=== PATIENT | female | born 1980 | race Hispanic/Latino ===

== ENCOUNTER 2017-11-14 18:08 | Emergency (ER) | payer MEDICAID ==
[2017-11-14] MEDS ORDERED: DiphenhydrAMINE 50 mg/ml Inj IVP STA (18:30)
[2017-11-14] MEDS ORDERED: Sodium Chloride 0.9% 1,000 ML IV STA (18:32)
[2017-11-14] MEDS ORDERED: DiphenhydrAMINE 50 mg/ml Inj ONE (18:48)
--- NOTE | 2017-11-14 18:48 | ED PDOC ---
HPI: Skin/Bite Injury Time Seen by Provider: 11/14/17 18:30 Chief Complaint (Nursing): Allergic Reaction Chief Complaint (Provider): Allergic Reaction History Per: Patient History/Exam Limitations: no limitations Onset/Duration Of Symptoms: Hrs (1/2 prior to arrival) Current Symptoms Are (Timing): Still Present Additional Complaint(s): 37 year old female with numerous allergies presents to the ED with diffuse hives all over her face, torso and extremities that began 1/2 hour prior to arrival and has since worsened. Patient now has lip swelling. She says that she had allergy testing done and is allergic to everything, making it difficult to be sure what she came into contact with. Denies tongue swelling and difficulty breathing. PMD: Dr. Cornelio Garcia Past Medical History Reviewed: Historical Data, Nursing Documentation, Vital Signs Vital Signs: Last Vital Signs Temp 98.5 F 11/14/17 18:23 Pulse 122 H 11/14/17 18:23 Resp 20 11/14/17 18:23 BP 129/72 11/14/17 18:23 Pulse Ox 99 11/14/17 18:23 - Medical History PMH: No Chronic Diseases - Surgical History Surgical History: No Surg Hx - Family History Family History: States: Unknown Family Hx - Allergies Allergies/Adverse Reactions: Allergies Allergy/AdvReac Type Severity Reaction Status Date / Time No Known Allergies Allergy Verified 09/02/15 15:21 Review of Systems ROS Statement: Except As Marked, All Systems Reviewed And Found Negative ENT: Positive for: Mouth Swelling (lip swelling ). Negative for: Throat Swelling Skin: Positive for: Rash (diffuse hives on face, torso and extremities) Physical Exam - Reviewed Nursing Documentation Reviewed: Yes Vital Signs Reviewed: Yes - Physical Exam Appears: Positive for: Non-toxic, No Acute Distress Head Exam: Positive for: ATRAUMATIC, NORMAL INSPECTION, NORMOCEPHALIC Skin: Positive for: Warm, Rash (urticarial rash all over body) Eye Exam: Positive for: Normal appearance, EOMI, PERRL Neck: Positive for: Normal, Painless ROM, Supple Cardiovascular/Chest: Positive for: Regular Rate, Rhythm. Negative for: Murmur Respiratory: Positive for: Normal Breath Sounds. Negative for: Respiratory Distress Gastrointestinal/Abdominal: Positive for: Normal Exam, Soft. Negative for: Tenderness Extremity: Positive for: Normal ROM (x 4). Negative for: Deformity Neurologic/Psych: Positive for: Alert, Oriented (x 3). Negative for: Motor/Sensory Deficits - ECG O2 Sat by Pulse Oximetry: 99 (RA) Pulse Ox Interpretation: Normal Medical Decision Making Medical Decision Makin:30 MDM: allergic dermatitis/ hives Will give Benadryl, Solumedrol and Pepcid and keep under close observation. Epinephrine will be given if symptoms are not improved quickly with other medica tions. 19:00 --Patient will be signed out to Dr. Hughes. Scribe Attestation: Documented by Prema Luciano acting as a scribe for Berkley Ramirez MD Provider Scribe Attestation: All medical record entries made by the Scribe were at my direction and personally dictated by me. I have reviewed the chart and agree that the record accurately reflects my personal performance of the history, physical exam, medical decision making, and the department course for this patient. I have also personally directed, reviewed, and agree with the discharge instructions and disposition. Disposition - Patient ED Disposition Is Patient to be Admitted: Transfer of Care - Disposition Disposition: Transfer of Care Disposition Time: 19:00 Patient Signed Over To: Luciano Hughes
[2017-11-14 19:21] LABS: BASO % 0.5 % (0.0-2.0); EOS # 0.1 K/uL (0.0-0.7); EOS % 1.4 % (0.0-4.0); HEMOGLOBIN 15.1 g/dL (12.0-16.0); LYMPH # 3.4 K/uL (1.0-4.3); LYMPH % 41.4 % (20.0-40.0); MEAN CELL VOLUME 88.5 fl (81.0-99.0); MEAN CORPUSCULAR HEMOGLOBIN 30.3 pg (27.0-31.0); MEAN CORPUSCULAR HGB CONC 34.2 g/dL (33.0-37.0); MEAN PLATELET VOLUME 8.9 fl (7.2-11.7); MONO # 0.5 K/uL (0.0-0.8); MONO % 6.1 % (0.0-10.0); NEUT # 4.2 K/uL (1.8-7.0); NEUT % 50.6 % (50.0-75.0); RBC 4.99 Mil/uL (3.80-5.20); RED CELL DISTRIBUTION WIDTH 12.1 % (11.5-14.5); WHITE BLOOD COUNT 8.3 K/uL (4.8-10.8)
[2017-11-14 19:30] LABS: BLOOD UREA NITROGEN 18 mg/dl (7-17); CALCIUM 9.7 mg/dL (8.4-10.2); GFR NON-AFRICAN AMERICAN > 60
--- NOTE | 2017-11-14 19:34 | ED PDOC ---
- Laboratory Results Result Diagrams: 11/14/17 19:15 11/14/17 19:15 - ECG O2 Sat by Pulse Oximetry: 99 (RA) Pulse Ox Interpretation: Normal Medical Decision Making Medical Decision Makin:00 --Patient was endorsed to this provider pending reevaluation. 20:00 --Patient reports improvement of rash. She will be discharged home. Return precautions provided. No difficulty breathing or any other symptoms. Very well appearing. Advised to followup with PMD for possible allergy testing Scribe Attestation: Documented by Prema Luciano acting as a scribe for Luciano Hughes MD Provider Scribe Attestation: All medical record entries made by the Scribe were at my direction and personally dictated by me. I have reviewed the chart and agree that the record accurately reflects my personal performance of the history, physical exam, medic al decision making, and the department course for this patient. I have also personally directed, reviewed, and agree with the discharge instructions and disposition. Disposition - Clinical Impression Clinical Impression: Allergic reaction - POA Present On Arrival: None - Disposition Referrals: Cornelio Garcia MD [Medical Doctor] - Disposition: Routine/Home Disposition Time: 20:00 Condition: STABLE Prescriptions: Epinephrine [Epipen] 0.3 mg IJ PRN PRN #3 auto.injct PRN Reason: Anaphylaxis Prednisone [Deltasone] 40 mg PO DAILY 3 Days #6 tablet Instructions: Hives Forms: [employer] ([place])
[2017-11-14 20:22] VITALS: BP 123/67; PULSE 102; RESP 18; TEMP 98.2
[2017-11-15 01:50] VITALS: O2SAT 99
== END 2017-11-14 20:20 | disposition home or self-care (01) ==
LOC: H.ER 18:08
DX: T78.40XA Allergy, unspecified, initial encounter (principal)
CPT/HCPCS: 80048; 85025; 96374; 96375; 99283; J1200; J2930; J7030

== ENCOUNTER 2017-11-16 19:24 | Emergency (ER) | payer MEDICAID ==
[2017-11-16 19:35] VITALS: TEMP 98.3; O2SAT 97
[2017-11-16] MEDS ORDERED: Sodium Chloride 0.9% 1,000 ML IV STA (20:12)
--- NOTE | 2017-11-16 20:16 | ED PDOC ---
HPI: Skin/Bite Injury Time Seen by Provider: 11/16/17 20:01 Chief Complaint (Nursing): Abdominal Pain Chief Complaint (Provider): rash History Per: Patient History/Exam Limitations: no limitations Onset/Duration Of Symptoms: Days (2) Current Symptoms Are (Timing): Still Present Quality Of Symptoms: Itching Additional Complaint(s): 37 y/o female presents for evaluation of diffuse rash x 2 days. Patient states she has been tested for allergies and had positive tests for "multiple things", but thinks this was triggered by a cat. Patient states she was seen here at onset of symptoms and prescribed prednisone, pepcid, and benadryl; which she has been taking without improvement. Patient also reports lower abdominal cramping with multiple loose stools since this morning. Denies fever, nausea/vomiting, chest pain, shortness of breath, palpitations, urinary symptoms, recent travel, sick contacts. Past Medical History Reviewed: Historical Data, Nursing Documentation, Vital Signs Vital Signs: Last Vital Signs Temp 98.3 F 11/16/17 19:31 Pulse 117 H 11/16/17 19:31 Resp 20 11/16/17 19:31 BP 123/85 11/16/17 19:31 Pulse Ox 97 11/16/17 19:31 - Medical History PMH: No Chronic Diseases - Surgical History Surgical History: Tonsillectomy - Family History Family History: States: Unknown Family Hx - Home Medications Home Medications: Ambulatory Orders Medication Instructions Recorded Epinephrine [Epipen] 0.3 mg IJ PRN PRN #3 auto.injct 11/14/17 RX: Prednisone [Deltasone] 40 mg PO DAILY 3 Days #6 tablet 11/14/17 Cetirizine HCl [Zyrtec] 10 mg PO DAILY #5 capsule 11/17/17 Dicyclomine [Bentyl] 20 mg PO TID PRN #15 tab 11/17/17 RX: Prednisone 50 mg PO DAILY #4 tablet 11/17/17 - Allergies Allergies/Adverse Reactions: Allergies Allergy/AdvReac Type Severity Reaction Status Date / Time cat dander Allergy RASH Verified 11/16/17 19:36 dog dander Allergy RASH Verified 11/16/17 19:36 tree and shrub pollen Allergy RASH Verified 11/16/17 19:36 Review of Systems ROS Statement: Except As Marked, All Systems Reviewed And Found Negative Gastrointestinal: Positive for: Abdominal Pain Skin: Positive for: Rash Physical Exam - Reviewed Nursing Documentation Reviewed: Yes Vital Signs Reviewed: Yes - Physical Exam Appears: Positive for: Well, Non-toxic, No Acute Distress Head Exam: Positive for: ATRAUMATIC, NORMAL INSPECTION, NORMOCEPHALIC Skin: Positive for: Rash (diffuse hives) Eye Exam: Positive for: Normal appearance ENT: Positive for: Normal ENT Inspection Cardiovascular/Chest: Positive for: Regular Rate, Rhythm Respiratory: Positive for: Normal Breath Sounds Gastrointestinal/Abdominal: Positive for: Bowel Sounds, Soft, Tenderness (rlq, suprapubic) Back: Positive for: Normal Inspection Extremity: Positive for: Normal ROM Neurologic/Psych: Positive for: Alert, Oriented (x3) - Laboratory Results Result Diagrams: 11/16/17 20:38 11/16/17 20:38 - ECG O2 Sat by Pulse Oximetry: 97 - Progress ED Course And Treament: labs, IV solumedrol, urine, CT abd/pelvis USArad impression: Thick walled fluid filled duodenum and loops of ileum compatible with enteritis. Infectious and inflammatory etiologies are considered On re-eval, rash slightly improved Patient educated on findings, discharged with rx Bentyl, Prednisone, Zyrtec Advised follow up PMD within 2 days for Patient Advocate/Special Education Coordinator referral Advised bland diet, fluids for gastro symptoms. Return precautions given Disposition - Clinical Impression Clinical Impression: Gastroenteritis, Allergic reaction - Patient ED Disposition Is Patient to be Admitted: No Counseled Patient/Family Regarding: Studies Performed, Diagnosis, Need For Followup, Rx Given - Disposition Disposition: Routine/Home Disposition Time: 01:22 Condition: IMPROVED Prescriptions: Cetirizine HCl [Zyrtec] 10 mg PO DAILY #5 capsule Dicyclomine [Bentyl] 20 mg PO TID PRN #15 tab PRN Reason: Pain, Mild (1-3) RX: Prednisone 50 mg PO DAILY #4 tablet Instructions: Gastroenteritis (ED), Hives
[2017-11-16 20:47] LABS: BASO % 0.2 % (0.0-2.0); HEMOGLOBIN 13.1 g/dL (12.0-16.0); MEAN CELL VOLUME 88.2 fl (81.0-99.0); MEAN CORPUSCULAR HEMOGLOBIN 29.7 pg (27.0-31.0); MEAN CORPUSCULAR HGB CONC 33.6 g/dL (33.0-37.0); MEAN PLATELET VOLUME 8.7 fl (7.2-11.7); MONO # 0.3 K/uL (0.0-0.8); MONO % 2.1 % (0.0-10.0); NEUT # 11.1 K/uL (1.8-7.0); NEUT % 89.7 % (50.0-75.0); PLATELET COUNT 272 K/uL (130-400); RBC 4.43 Mil/uL (3.80-5.20); RED CELL DISTRIBUTION WIDTH 12.4 % (11.5-14.5); WHITE BLOOD COUNT 12.4 K/uL (4.8-10.8)
[2017-11-16 20:50] LABS: SQUAMOUS EPITHIAL 3 /hpf (0-5); URINE BACTERIA MOD (<OCC); URINE BILIRUBIN NEGATIVE (NEGATIVE); URINE BLOOD NEGATIVE (NEGATIVE); URINE CLARITY SLIGHTY-CLOUDY (Clear); URINE COLOR YELLOW (YELLOW); URINE GLUCOSE (UA) 50 mg/dL (Normal); URINE LEUKOCYTE ESTERASE NEG Leu/uL (Negative); URINE PROTEIN NEGATIVE (NEGATIVE); URINE UROBILINOGEN 0.2-1.0 mg/dL (0.2-1.0)
[2017-11-16 21:02] LABS: ALB/GLOB RATIO 1.1 (1.0-2.1); ALBUMIN 3.7 g/dL (3.5-5.0); ALT/SGPT 18 U/L (9-52); AST/SGOT 29 U/L (14-36); BLOOD UREA NITROGEN 11 mg/dl (7-17); CALCIUM 8.9 mg/dL (8.4-10.2); GFR NON-AFRICAN AMERICAN > 60
[2017-11-16] MEDS ORDERED: Iohexol 240 (50 ml) PO ONE (21:24)
[2017-11-16] MEDS ORDERED: Iohexol 240 (50 ml) ONE (21:30)
[2017-11-16 21:36] LABS: BANDS 3 % (0-2); LYMPHOCYTE 9 % (20-50); MONOCYTE 4 % (0-10); NEUTROPHIL 84 % (42-75); TOTAL CELLS COUNTED 100
[2017-11-16 21:37] LABS: HYPOCHROMIC SLIGHT; PLATELET ESTIMATE NORMAL (NORMAL)
[2017-11-16] MEDS ORDERED: DiphenhydrAMINE 50 mg/ml Inj IV STA (22:37)
[2017-11-16] MEDS ORDERED: DiphenhydrAMINE 50 mg/ml Inj ONE (22:56)
[2017-11-16] MEDS ORDERED: Iohexol 300 100 ML IJ ONE (23:15)
[2017-11-16] MEDS ORDERED: Sodium Chloride 0.9% 100 ML ONE (23:15)
[2017-11-17 02:12] VITALS: BP 103/56; PULSE 87; RESP 16
--- NOTE | 2017-11-17 11:11 | CT ---
Date of service: 11/16/2017 PROCEDURE: CT Abdomen and Pelvis with contrast HISTORY: lower abd pain COMPARISON: None. TECHNIQUE: Contrast dose: 95 mL of Omnipaque 300 Radiation dose: Total exam DLP = 386 mGy-cm. This CT exam was performed using one or more of the following dose reduction techniques: Automated exposure control, adjustment of the mA and/or kV according to patient size, and/or use of iterative reconstruction technique. FINDINGS: LOWER THORAX: Unremarkable. LIVER: At least 4 sub cm hepatic hypodensities are noted. One lateral right hepatic dome level (series 2, image 15) and another superior right liver series 3, image 30. And another right hepatic lobe at gallbladder fossa level. (Series 2, image 24). Another subcapsular hypodensity right hepatic lobe noted on series 3, image 28 no additional oncological positive history provided. Incidental tiny liver cysts and/or tiny hemangiomas are believe most likely etiologies. No gross ductal dilatation. GALLBLADDER AND BILE DUCTS: Unremarkable. PANCREAS: Unremarkable. No gross lesion or ductal dilatation. SPLEEN: Unremarkable. ADRENALS: Unremarkable. No mass. KIDNEYS AND URETERS: 4 to 5 mm nonobstructing left renal calculus-lower pole (series 3, image 69. No hydronephrosis. No suspect renal mass. VASCULATURE: Unremarkable. No aortic aneurysm. BOWEL: Mild mural thickening duodenal and distal ileal segments. No obstruction. No diverticulitis. APPENDIX: Normal appendix. PERITONEUM: There is free fluid in the [id number]-likely physiologic in this 37-year-old female. No free air. LYMPH NODES: Unremarkable. No enlarged lymph nodes. BLADDER: Unremarkable. REPRODUCTIVE: Mild asymmetrical hypodensity in the right adnexa-physiological changes in the right ovary are compatible with this. In the posterior uterine body an approximately 1 cm rounded hyperdensity is noted-possibly an enhancing mass. BONES: No acute fracture. OTHER FINDINGS: None. IMPRESSION: The mild mural thickening of the duodenum and small bowel loops/distal ileum can be seen with nonspecific inflammatory changes-mild duodenitis in a mild ileitis/enteritis-respectively. No obstruction or free air seen. These findings are noted on the [facility] preliminary report. Additional findings noted in the reproductive section. Pelvic ultrasound transvaginal ultrasound technique is recommended for further evaluation. Free fluid in the cul-de-sac likely physiologic in this 37-year-old female. These additional findings mentioned in this section are not included in the preliminary [facility] report. Comments: Study marked for PA review .
== END 2017-11-17 01:26 | disposition home or self-care (01) ==
LOC: H.ER 19:24
DX: K52.9 Noninfective gastroenteritis and colitis, unspecified (principal); T78.40XA Allergy, unspecified, initial encounter
CPT/HCPCS: 74177; 80053; 81003; 81025; 85025; 87086; 96374; 99284; J1200; J2930; J7030; Q9966; Q9967